=== PATIENT | male | born 1970 | race Hispanic/Latino ===

== ENCOUNTER 2023-11-10 06:11 | Emergency (ER) | payer BC ==
[~2023-11-10] VITALS: Ht 172.7 cm; Wt 117.9 kg
[2023-11-10 06:12] VITALS: BP 161/89; PULSE 103; RESP 18
[2023-11-10] MEDS: ACETAMINOPHEN 500 MG TABLET PO ONE (06:42)
[2023-11-10 07:04] LABS: SARS-CoV-2, RNA, NAAT NEGATIVE SARS CoV-2 (NEGATIVE)
[2023-11-10 07:10] LABS: INFLUENZA TYPE A Negative For Type A (NEGATIVE); INFLUENZA TYPE B Negative For Type B (NEGATIVE)
[2023-11-10 07:40] LABS: RAPID GROUP A STREP positive (NEGATIVE)
[2023-11-10 07:42] VITALS: TEMP 98.2
[2023-11-10] MEDS: BENZONATATE 100 MG CAPSULE PO ONE (08:32)
[2023-11-10] MEDS: AMOXICILLIN 500 MG CAPSULE PO ONE (08:32)
[2023-11-10] MEDS ORDERED: BENZ-39 PO (08:33)
[2023-11-10] MEDS ORDERED: ALBUHFA IH (08:33)
[2023-11-10] MEDS ORDERED: AMOX500C2 PO (08:33)
== END 2023-11-10 08:42 | disposition home or self-care (01) ==
LOC: EDH 06:11
DX: J20.9 Acute bronchitis, unspecified (principal); J02.0 Streptococcal pharyngitis; I10 Essential (primary) hypertension; E11.9 Type 2 diabetes mellitus without complications; E78.00 Pure hypercholesterolemia, unspecified; Z20.822 Contact with and (suspected) exposure to COVID-19
CPT/HCPCS: 71045; 87635; 87804; 87880